=== PATIENT | female | born 1970 | race Two or more races ===

== ENCOUNTER → 2024-06-09 | Outpatient (BNVA) | payer BC, SELFPAY | END | disposition home or self-care (01) | PROVIDERS: PCP Family Medicine; Referring Provider Family Medicine; Visit Provider Urology | DX: D17.71 Benign lipomatous neoplasm of kidney (principal); E11.9 Type 2 diabetes mellitus without complications; I10 Essential (primary) hypertension; F41.9 Anxiety disorder, unspecified; N32.89 Other specified disorders of bladder; E78.00 Pure hypercholesterolemia, unspecified | CPT/HCPCS: 81003; 99212; G0463 ==

== ENCOUNTER 2024-07-02 01:17 | Emergency (ER) | payer BC, SELFPAY ==
[2024-07-02] VITALS (10 sets, daily range): BP systolic 134–174; BP diastolic 77–103; PULSE 74–105; RESP 16–97; TEMP 36.7–37.1; O2SAT 97–100; BMI 22.3
--- NOTE | 2024-07-02 | XR_ITS ---
Examination: MRI brain without intravenous contrast. Date and time of exam: July 02, 2024 0757 hours Comparison July 07, 2010 INDICATIONS: Head pressure and numbness in the left side of the head and left upper extremity beginning today, CT stroke alert July 02, 2024 0239 hours Technique: Multiple axial and sagittal images of the brain obtained. Siemens high-resolution 1.5 Marlene short bore scanners utilized. Sagittal sections, T1-weighted, TR 500, TE 14, are performed. Axial sections proton-density and T2-weighted have been obtained. Inversion recovery axial images, TR 9, 260, TE 111, TI 2500. Diffusion weighted images, axial sections, TR 4800, TE 128, B value 1000 Axial sections, ADC map, TR 4800, TE 128 Findings: Enlargement of the sella turcica is not present. The optic chiasm and infundibular are not remarkable. Prepontine and interpeduncular cisterns are not enlarged. There is no localized enlargement of the medulla or sam. Fourth ventricle and cerebellar tonsils appear normal in position. No subacute area of hemorrhage density is seen. Mass in the cerebellopontine angle region is not evident. Globes symmetrical. Orbital musculature including medial lateral rectus muscles do not exhibit abnormality. Diffusion-weighted images demonstrate no focus of restricted diffusion. Increased white matter signal numerous punctate foci increased signal in the cerebral white matter Mass effect upon the ventricular system is not identified. Impression: Numerous punctate foci increased signal in the cerebral white matter, demyelinating disease
--- NOTE | 2024-07-02 02:11 | EKG_ITS ---
[facility] Test Date: 2024-07-02 Pat Name: CONNIE VAZQUEZ Department: Room: - Gender: Female Deployment Manager: : 1970 Requested By: ED Temporary Provider Order Number: [id number] Reading MD: ED Temporary Provider Measurements Intervals [place] Rate: 90 P: 36 OH: 145 QRS: 68 QRSD: 79 T: 51 QT: 341 QTc: 418 Interpretive Statements SINUS RHYTHM No previous ECG available for comparison /store/S0/[id number]/ecg/[id number].pdf
--- NOTE | 2024-07-02 02:33 | XR_ITS ---
Examination: CT brain head without contrast. 2-D sagittal coronal reconstructions Date and time of exam: July 02, 2024 0219 hrs. Indications: Stroke alert, onset focal neurologic deficit left-sided body weakness beginning one hour ago CTDI: vol (mGy):43.40 DLP: (mGycm):880 Technique: Multiple CT axial sections of the brain have been obtained, 5 mm slice thickness. Contrast has not been administered. 2-D sagittal, coronal reconstructions have been obtained Low dose protocols were performed. One or more of the following dose reduction techniques were used; automated exposure control, adjustment of the mA and/or KV according to patient size, use of iterative reconstruction technique. Findings: No significant ventricular enlargement. Intra-axial or extra-axial hemorrhage density is not seen. No mass effect or midline shift Basal cisterns are not remarkable. Fourth ventricle is midline. Cranial vault intact. Acute maxillary sinusitis Impression: Negative for acute hemorrhage, mass effect or midline shift Brain MRI MRA without contrast, stroke protocol, would best assess for demyelinating disease, acute ischemic change
--- NOTE | 2024-07-02 02:34 | XR_ITS ---
Examination: CTA carotids with intravenous contrast CTA brain, head with intravenous contrast. 2-D sagittal, coronal reconstructions. 3-D reconstructions. Exam date and time: June 01, 2025 at 0245 hrs. Indications: Stroke alert this morning, onset focal neurologic deficit left-sided body weakness beginning one hour ago with headache beginning one week ago CTDI: vol (mGy) 16.26 DLP: (mGycm) 400 Technique: Multiple CTA axial brain, head carotid images post intravenous contrast injection 75 cc, Isovue-[id number]. 2-D sagittal, coronal reconstructions. 3-D reconstructions, 3-D post processing including vascular maximum intensity projection images. Low dose protocols were performed. One or more of the following dose reduction techniques were used; automated exposure control, adjustment of the mA and/or KV according to patient size, use of iterative reconstruction technique. Findings: No significant common carotid carotid bifurcation or internal carotid artery stenoses Dominant right vertebral artery with no critical stenoses No cerebral large vessel arterial occlusions, thrombus, dissection or cerebral aneurysm Impression: No significant neck arterial stenoses No cerebral large vessel arterial occlusions or thrombus
--- NOTE | 2024-07-02 02:53 | PC.NURSE ---
STROKE ALERT CALLED, CAME BACK FROM CT, PT CAME TO ER WITH DAUGHTER FOR C/O HEADACHE,COUGHING AND LEFT ARM WEAKNESS.
--- NOTE | 2024-07-02 02:53 | PC.NURSE ---
TELE NEUROLOGY ON AND TALKING TO DR. KWON NEUROLOGIST.
--- NOTE | 2024-07-02 03:01 | PC.NURSE ---
DR. KWON SAID NOT CANDIDATE FOR THROMBOLYTIC.
--- NOTE | 2024-07-02 03:09 | PRELIM_ITS ---
CT scan of the head without intravenous contrast (axial sections with sagittal and coronal reformats) July 02, 2024 0239 hoursClinical History: Focal neuro deficit, stroke suspectedComparison: Compar ed with the prior study dated October 10, 2019 Findings:There is no evidence of intracranial hemorrhage , mass effect or midline shift. There is mild volume loss. The calvarium is unremarkable. The mastoid air cells are clear. There is mild mucosal thickening in bilateral maxillary, ethmoid and right sphe noid sinuses. There are fluid levels in bilateral maxillary sinuses.Impression:No evidence of intracr anial hemorrhage, mass effect or midline shift. Mild volume loss.Other findings as described above. D iscussion Details: Results verbally communicated to : Dr. Prado at 03:02 AM 07/02/2024 Report El ectronically Signed By: Tonia Lan 07/02/2024 3:08:26 AM [EST]
--- NOTE | 2024-07-02 03:21 | PD.TNEURO ---
Tele Neuro Consultation Consultation Date 07/02/24 Most Recent Vital Signs Last Vital Signs Temp 98.8 F 07/02/24 03:13 Pulse 93 07/02/24 02:54 Resp 18 07/02/24 02:54 BP 167/87 H 07/02/24 02:54 Pulse Ox 99 07/02/24 02:54 O2 Del Method Room Air 07/02/24 02:54 Consultation Narrative [facility] Tele[facility]rology [facility] Patient Name:???Marie Jean Date of :???1970 Identification Number:??? Date of Service:???07/02/2024 02:31:42 Diagnosis:?R29.810 - Facial numbness/ Facial weakness Impression: ?54 y/o F with history of DM2, HLD, migraines, anxiety/depression, now presenting to hospital with a few days of sharp headaches and neck pain (also recent diagnosis of influenza), and while in the ER developed acute onset of left-sided facial weakness and numbness for which stroke alert was activated. Her examination demonstrates functional qualities, including inconsistent displays of weakness with her left arm and evidence of effort-dependence. She also appears to be squinting her left eye closed, but appears normal with distraction. NCHCT did not show acute abnormalities. Based on functional qualities to her examination, thrombolytic was not advised (low clinical suspicion for stroke). CTA head/neck without any concerning vascular abnormalities on my review. ? ?Highest clinical suspicion is for functional neurological syndrome, or potentially migraine-related symptoms. Lower clinical suspicion for stroke. ? ?Would recommend MRI brain w/o contrast to exclude stroke. If MRI does not show evidence of stroke, then no need for further inpatient neurological work-up. Should MRI brain be positive for stroke, would initiate aspirin and Plavix, and admit for further work-up. Sign Out: ? Discussed with Emergency Department Provider Advanced Imaging:CTA Head and Neck Completed. LVO:No Patient in not a candidate for RAYMUNDO Metrics: Last Known Well: 07/02/2024 01:25:00 Dispatch Time: 07/02/2024 02:30:45 Initial Response Time: 07/02/2024 02:34:42Symptoms: headaches; left-sided facial weakness/numbness. Initial patient interaction: 07/02/2024 02:35:25 NIHSS Assessment Completed: 07/02/2024 02:58:40Patient is not a candidate for Thrombolytic. Thrombolytic Medical Decision: 07/02/2024 03:06:10Patient was not deemed candidate for Thrombolytic because of following reasons: other diagnosis suspected suspect functional neurological disorder. I personally Reviewed the CT Head and it Showed no acute intracranial abnormalities Primary Provider Notified of Diagnostic Impression and Management Plan on: 07/02/2024 03:13:06 History of Present Illness:Patient is a 54 year old Female. Patient originally presented to hospital due to severe headaches and neck pains that have been occurring for the past few days. She had been diagnosed with the flu last Saturday. Due to worsening of the headaches, she came to ER for further evaluation. While in the ER, she suddenly noticed numbness and weakness over the left side of her face and left arm/left leg. Also noted to be hypertensive. ? Past Medical History: ?Diabetes Mellitus ?Hyperlipidemia ?Migraine Headaches Other PMH:? anxiety/depression; Medications: No Anticoagulant use? No Antiplatelet use Reviewed EMR for current medications Allergies:? Reviewed Social History: Smoking: No Alcohol Use: No Drug Use: No Family History: There is no family history of premature cerebrovascular disease pertinent to this consultation ROS : 14 Points Review of Systems was performed and was negative except mentioned in HPI. Past Surgical History: There Is No Surgical History Contributory To Today?s Visit ? Examination: BP(157/101),?Pulse(87),?Blood Glucose(143) 1A: Level of Consciousness - Alert; keenly responsive?+ 0 1B: Ask Month and Age - Both Questions Right?+ 0 1C: Blink Eyes & Squeeze Hands - Performs Both Tasks?+ 0 2: Test Horizontal Extraocular Movements - Normal?+ 0 3: Test Visual [place] - No Visual Loss?+ 0 4: Test Facial Palsy (Use Grimace if Obtunded) - Normal symmetry?+ 0 5A: Test Left Arm Motor Drift - Drift, but doesn't hit bed?+ 1 5B: Test Right Arm Motor Drift - Drift, but doesn't hit bed?+ 1 6A: Test Left Leg Motor Drift - Drift, but doesn't hit bed?+ 1 6B: Test Right Leg Motor Drift - Drift, but doesn't hit bed?+ 1 7: Test Limb Ataxia (FNF/Heel-Paredes) - No Ataxia?+ 0 8: Test Sensation - Mild-Moderate Loss: Less Sharp/More Dull?+ 1 9: Test Language/Aphasia - Normal; No aphasia?+ 0 10: Test Dysarthria - Normal?+ 0 11: Test Extinction/Inattention - No abnormality?+ 0 NIHSS Score:?5 NIHSS Free Text :?reports reduced sensation throughout the left side ? ?notably, patient's examination is inconsistent; initially exhibits minimal movement of her left arm. Then with prompting, she is able to slowly raise is up to 90 degrees, then suddenly drops it; also exhibits similar findings (but to a lesser extent) with her right arm and both legs Pre-Morbid Modified [place] Scale:0 Points = No symptoms at all Spoke with :?Dr. Prado This consult was conducted in real time using interactive audio and video technology. Patient was informed of the technology being used for this visit and agreed to proceed. Patient located in hospital and provider located at home/office setting. Patient is being evaluated for possible acute neurologic impairment and high probability of imminent or life-threatening deterioration. I spent total of 47 minutes providing care to this patient, including time for face to face visit via telemedicine, review of medical records, imaging studies and discussion of findings with providers, the patient and/or family. Dr Claude Ge [facility] For Inpatient follow-up with [facility] physician please call [facility] at . As we are not an outpatient service for any post hospital discharge needs please contact the hospital for assistance. If you have any questions for the [facility] physicians or need to reconsult for clinical or diagnostic changes please contact us via [facility] at . ?
--- NOTE | 2024-07-02 03:22 | PRELIM_ITS ---
CT angiogram of the head and neck with intravenous contrast (axial sections with sagittal and coronal reformats) July 02, 2024 at 0245 hours Clinical History: Focal neuro deficit, stroke suspected.Co mparison: CT Angiogram Neck October 10, 2019. Findings:Head: The internal carotid, middle and anterior cerebral arteries are patent bilaterally. The intracranial vertebral arteries are patent. The vertebr obasilar junction, basilar and posterior cerebral arteries are patent. No evidence of large vessel oc clusion, critical stenosis or aneurysm.Neck: The aortic arch to the extent visualized as well as the origins of the right brachiocephalic, left common carotid, left vertebral and subclavian arteries are patent. The common carotid arteries, carotid bulbs, and internal and external carotid arteries are p atent. The origins of the vertebral arteries are unremarkable. The right vertebral artery is dominant . No evidence of vascular occlusion, critical stenosis, dissection or aneurysm. The soft tissues of t he neck are unremarkable. The osseous structures are unremarkable.Impression: Head: No evidence of la rge vessel occlusion, critical stenosis or aneurysm.Neck: No evidence of vascular occlusion, critical stenosis, dissection or aneurysm.Discussion Details: Results verbally communicated to : Dr Sangeeta kenyon at 03:10 AM 07/02/2024 Report Electronically Signed By: Tonia Lan 07/02/2024 3:21:35 AM [EST]
[2024-07-02 03:24] LABS: Basophils % (Auto) 1 % (0-2.5); Eosinophils # (Auto) 0.1 Thou/mm3 (0.0-0.5); Eosinophils % (Auto) 1 % (0-10); Hematocrit 35.7 % (36.0-46.0); Hemoglobin 12.3 g/dL (12.0-16.0); Immature Granulocytes % (Auto) 0 % (0-0); Immature Granulocytes Auto 0.01 Thou/mm3 (0.00-0.00); Lymphocytes # (Auto) 1.9 Thou/mm3 (1.0-4.8); Lymphocytes % (Auto) 31 % (10-50); Mean Corpuscular HGB Conc 34.5 g/dl (31.0-37.0); Mean Corpuscular Hemoglobin 30.1 pg (25.0-35.0); Mean Corpuscular Volume 88 fL (80-100); Monocytes # (Auto) 0.6 Thou/mm3 (0.0-0.8); Monocytes % (Auto) 9 % (0-12); Neutrophils # (Auto) 3.7 Thou/mm3 (1.8-7.7); Neutrophils % (Auto) 58 % (37-80); Nucleated Red Blood Cell % 0 /100 WBC (0); Platelet Count 192 Thou/mm3 (140-440); RDW Standard Deviation 38.7 fL (36.4-46.3); Red Blood Count 4.08 Miln/mm3 (4.00-5.20); White Blood Count 6.2 Thou/mm3 (3.6-11.0)
--- NOTE | 2024-07-02 03:45 | EDNOTE_ITS ---
Upper Respiratory Inf. RME/HPI General Chief Complaint: Flu Like Symptoms Stated Complaint: BP 198/95 / HEADACHE /NECK Time Seen by Provider: 07/02/24 03:45 Arrival date/time: 07/02/24 01:17 Limitations: no limitations RME / HPI RME / HPI Narrative: Dr. Prado's Main ED Evaluation: 54yo female presents to the ED for complaints of tingling to the back of her neck and left arm numbness. Patient states she's been having these symptoms since she started taking her Z-pack on Saturday. Patient endorses having a headache and feeling generally weak, so she came in for evaluation. She endorses I have a sinus infection . She denies any other associated symptoms. Related Data Home Medications ?Medication ?Instructions ?Recorded ?Confirmed clonazepam 0.5 mg tablet (Klonopin) 2 mg PO BID PRN Anxiety #0 tabs 12/06/14 06/09/24 fenofibrate 160 mg tablet 160 mg PO QDAY 07/15/18 06/09/24 paroxetine HCl 30 mg tablet (Paxil) 30 mg PO QDAY 07/15/18 06/09/24 scopolamine base 1 mg over 3 days 1 mg topical Q3D PRN Vertigo 07/15/18 06/09/24 transdermal patch rosuvastatin 5 mg tablet (Crestor) 5 mg PO QDAY 08/01/18 06/09/24 vit D3-folic acid-vit B2-B6-B12 50,000 units PO QMONTH 08/01/18 06/09/24 2,000 unit-800 mcg-0.32 mg tablet omeprazole 20 mg capsule,delayed 20 mg PO BID 10/10/18 06/09/24 release semaglutide 0.25 mg or 0.5 mg (2 0.25 mg subcut QWEEK 12/01/20 06/09/24 mg/1.5 mL) subcutaneous pen injector (Ozempic) semaglutide 1 mg/dose (2 mg/1.5 1 mg subcut QWEEK 01/05/22 06/09/24 mL) subcutaneous pen injector (Ozempic) semaglutide 1 mg/dose (4 mg/3 mL) 1 mg subcut QWEEK 06/11/23 06/09/24 subcutaneous pen injector (Ozempic) Previous Rx's ?Medication ?Instructions ?Recorded sodium chloride 0.65 % nasal spray 2 spray intranasal QID #60 mL 10/10/19 aerosol (Saline Nasal) Allergies Allergy/AdvReac Type Severity Reaction Status Date / Time prochlorperazine Allergy Mild itching Verified 06/09/24 13:19 prednisone Allergy Mild Insomnia Uncoded 06/09/24 13:19 Review of Systems Review of Systems Systems Reviewed: All systems reviewed, normal except as documented Past Medical History Past Medical History NEUROLOGIC: Positive Neurological Disorders and Migraine; Negative Seizures CARDIAC: Positive Hypercholesterolemia and Hypertension; Negative Cardiac Disorders or Congestive Heart Failure RESPIRATORY: Negative Chronic Obstructive Pulmonary Disease (COPD) or Asthma GASTROINTESTINAL: Positive Gastrointestinal Disorders and Gastrointestinal Bleed GENITOURINARY: Negative Genitourinary Disorders or Renal Disease MUSCULOSKELETAL: Positive Musculoskeletal Disorders and Arthritis ENT: Positive Eye Prosthesis ENDOCRINE: Positive Endocrine Disorders and Diabetes Mellitus Type 2; Negative Diabetes Mellitus Type 1 HEMATOLOGIC: Negative Blood Disorders or Sickle Cell Disease PSYCHO/SOCIAL: Positive Anxiety; Negative Depression OTHER HISTORY: Positive Anesthesia Reactions; Negative Autoimmune Disease, Blood Transfusions or Blood Transfusion Reaction Family History FAMILY HISTORY: Positive Family Cardiac Disorders Surgical History SURGICAL: Positive Angiogram and Hysterectomy Social History SMOKING STATUS: Never smoker ED Exam Narrative Physical exam: 1A: Level of Consciousness - Alert; keenly responsive + 0 1B: Ask Month and Age - Both Questions Right + 0 1C: Blink Eyes & Squeeze Hands - Performs Both Tasks + 0 2: Test Horizontal Extraocular Movements - Normal + 0 3: Test Visual Herron - No Visual Loss + 0 4: Test Facial Palsy (Use Grimace if Obtunded) - Normal symmetry + 0 5A: Test Left Arm Motor Drift - Drift, but doesn't hit bed + 1 5B: Test Right Arm Motor Drift - Drift, but doesn't hit bed + 1 6A: Test Left Leg Motor Drift - Drift, but doesn't hit bed + 1 6B: Test Right Leg Motor Drift - Drift, but doesn't hit bed + 1 7: Test Limb Ataxia (FNF/Heel-Paredes) - No Ataxia + 0 8: Test Sensation - Mild-Moderate Loss: Less Sharp/More Dull + 1 9: Test Language/Aphasia - Normal; No aphasia + 0 10: Test Dysarthria - Normal + 0 11: Test Extinction/Inattention - No abnormality + 0 NIHSS Score: 5 General Limitations: Present no limitations General appearance: Present alert and in no apparent distress Head Head exam: Present atraumatic Eye Eye exam: Present normal appearance, PERRL and EOMI ENT ENT exam: Present normal exam, normal oropharynx and mucous membranes dry Neck Neck exam: Present normal inspection, full ROM and trachea midline Chest Chest inspection: Present normal inspection and symmetric chest wall rise Respiratory Respiratory exam: Present wheezes (minimal with cough) Cardiovascular Cardiovascular exam: Present regular rate, normal rhythm and normal heart sounds Abdominal Exam Abdominal exam: Present soft and normal bowel sounds Extremities Exam Extremities exam: Present normal inspection and full ROM; Absent pedal edema Back Exam Back exam: Present normal inspection and full ROM Neurological Exam Neurological exam: Present alert, oriented X3, CN II-XII intact and other (no facial droop, no aphasia) Psychiatric Psychiatric exam: Present normal affect and normal mood Skin Skin exam: Present warm, dry, intact and normal color Course Quality Measures none Orders Category Date Time Status Bedside Blood Glucose NOW Care 07/02/24 02:34 Active Bedside Influenza A&B Antigen Test NOW Care 07/02/24 01:26 Completed Crimping Press Operator NOW Care 07/02/24 02:34 Active Crimping Press Operator now Care 07/02/24 02:33 Active Continuous Pulse Oximetry NOW Care 07/02/24 02:33 Completed Continuous Pulse Oximetry NOW Care 07/02/24 02:34 Completed EKG (ED ONLY) *Do not use* NOW Care 07/02/24 02:11 Completed In and Out Catheter NEEDED Care 07/02/24 02:34 Active Insert IV NOW Care 07/02/24 02:33 Active Insert IV NOW Care 07/02/24 02:34 Completed MRI Screening NOW Care 07/02/24 03:12 Active MRI Screening NOW Care 07/02/24 03:12 Completed NIH Stroke Scale now Care 07/02/24 02:34 Active NPO NOW Care 07/02/24 02:34 Active Nurse Swallow Screen x1 Care 07/02/24 02:34 Active Consult to Neurology / Tele-Neurology Routine Cons 07/02/24 02:[address] angio stroke protocol Stat Exams 07/02/24 02:[address] stroke protocol Stat Exams 07/02/24 02:33 Taken EKG (ED Only) Stat Exams 07/02/24 02:11 Draft MR head/brain wo con Stat Exams 07/02/24 Ordered CBC Stat Lab 07/02/24 03:08 Completed Comprehensive Metabolic Panel Stat Lab 07/02/24 03:08 Completed Drug Screen,Urine Stat Lab 07/02/24 02:34 Ordered HCG Titer if Positive Stat Lab 07/02/24 03:08 Completed Magnesium Stat Lab 07/02/24 03:08 Completed Partial Thromboplastin Time Stat Lab 07/02/24 03:08 Received Prothrombin Time with INR Stat Lab 07/02/24 03:08 Received Troponin I Stat Lab 07/02/24 03:08 Completed Urinalysis Stat Lab 07/02/24 02:34 Ordered Urine Culture Stat Lab 07/02/24 02:34 Ordered Acetaminophen Tab [Tylenol Tab] Med 07/02/24 03:52 Discontinued 1,000 mg PO X1 ONE Albuterol/Ipratr Rt Leyda [Duoneb Rt Leyda] Med 07/02/24 03:54 Discontinued 3 ml INH X1 ONE Ketorolac Inj [Toradol Inj] Med 07/02/24 03:55 Discontinued 30 mg IVP X1 ONE Ondansetron Inj [Zofran Inj] Med 07/02/24 02:34 Active 4 mg IV Q4HR PRN Sodium Chloride 0.9% 1000 ml [Ns] 1,000 ml Med 07/02/24 03:53 Discontinued IV 999 mls/hr Oxygen Delivery NOW RT 07/02/24 02:34 Active Vital Signs Vital signs: Vital Signs Temperature 98.6 F 07/02/24 01:32 Pulse Rate 105 H 07/02/24 01:32 Respiratory Rate 18 07/02/24 01:32 Blood Pressure 174/103 H 07/02/24 01:32 Pulse Oximetry (%) 98 07/02/24 01:32 Oxygen Delivery Method Room Air 07/02/24 01:32 Upper Respiratory Infection Patient data External records reviewed:: [facility] previous records (Per chart review, patient has no relevant previous ED visits.) Clinical information provided by:: patient Social determinants that could affect healthcare access:: none Patient has the following chronic illnesses:: HTN, HLD, DM How is presenting disease/condition affected by chronic disease/condition?: exacerbated by Evaluation data The following diagnostics were reviewed and interpreted by me:: lab results, radiology exam(s) and EKG tracing(s) Lab and/or radiology exams considered but not ordered:: none Interpretation Summary: CBC is normal, EKG 0219, 90, no elev or dep, qtc 418 ------ Telerad Preliminary Report Draft Patient: CONNIE VAZQUEZ [facility]. Record#: [id number] Birthdate: 1970 Age/Sex: 54 / F Location: [facility] Attending Dr: Ordering Physician: Date of Service: Procedure(s): Accession Number(s): cc: ~ CT scan of the head without intravenous contrast (axial sections with sagittal and coronal reformats) July 02, 2024 0239 hours Clinical History: Focal neuro deficit, stroke suspected Comparison: Compared with the prior study dated October 10, 2019 Findings: There is no evidence of intracranial hemorrhage, mass effect or midline shift. There is mild volume loss. The calvarium is unremarkable. The mastoid air cells are clear. There is mild mucosal thickening in bilateral maxillary, ethmoid and right sphenoid sinuses. There are fluid levels in bilateral maxillary sinuses. Impression: No evidence of intracranial hemorrhage, mass effect or midline shift. Mild volume loss. Other findings as described above. Discussion Details: Results verbally communicated to : Dr. Prado at 03:02 AM 07/02/2024 Report Electronically Signed By: Tonia Lan 07/02/2024 3:08:26 AM [EST] ------- Telerad Preliminary Report Draft Patient: CONNIE VAZQUEZ [facility]. Record#: [id number] Birthdate: 1970 Age/Sex: 54 / F Location: [facility] Attending Dr: Ordering Physician: Date of Service: Procedure(s): Accession Number(s): cc: ~ CT angiogram of the head and neck with intravenous contrast (axial sections with sagittal and coronal reformats) July 02, 2024 at 0245 hours Clinical History: Focal neuro deficit, stroke suspected. Comparison: CT Angiogram Neck October 10, 2019. Findings: Head: The internal carotid, middle and anterior cerebral arteries are patent bilaterally. The intracranial vertebral arteries are patent. The vertebrobasilar junction, basilar and posterior cerebral arteries are patent. No evidence of large vessel occlusion, critical stenosis or aneurysm. Neck: The aortic arch to the extent visualized as well as the origins of the right brachiocephalic, left common carotid, left vertebral and subclavian arteries are patent. The common carotid arteries, carotid bulbs, and internal and external carotid arteries are patent. The origins of the vertebral arteries are unremarkable. The right vertebral artery is dominant. No evidence of vascular occlusion, critical stenosis, dissection or aneurysm. The soft tissues of the neck are unremarkable. The osseous structures are u nremarkable. Impression: Head: No evidence of large vessel occlusion, critical stenosis or aneurysm. Neck: No evidence of vascular occlusion, critical stenosis, dissection or aneurysm. Discussion Details: Results verbally communicated to : Dr Sangeeta Norton at 03:10 AM 07/02/2024 Report Electronically Signed By: Tonia Lan 07/02/2024 3:21:35 AM [EST] Medications / Prescriptions Medications or Prescriptions considered but not ordered:: none Medication administrations:: Medication Administration History Ondansetron HCl (Ondansetron Inj 2 Mg/Ml Inj 2 Ml) 4 mg IV Q4HR PRN PRN Reason: NAUSEA OR VOMITING Stop: 08/01/24 02:33 Discontinued Medications Acetaminophen (Acetaminophen 325 Mg Tablet) 1,000 mg PO X1 ONE Stop: 07/02/24 03:53 Last Admin: 07/02/24 04:07 Dose: Not Given Documented By: CVL Non-Admin Reason: Patient Refused Albuterol/Ipratropium (Albuterol/Ipratropium (Duoneb) Rt Leyda 3 Ml Nebu) 3 ml INH X1 ONE Stop: 07/02/24 03:55 Last Admin: 07/02/24 04:15 Dose: 3 ml Documented By: SC Sodium Chloride (Ns) 1,000 mls @ 999 mls/hr IV .Q1H1M ONE Stop: 07/02/24 04:53 Last Infusion: 07/02/24 05:15 Dose: Infused Documented By: Admin: 07/02/24 04:12 Dose: 999 mls/hr Documented By: CVL Ketorolac Tromethamine (Ketorolac Inj 30 Mg/Ml Vial) 30 mg IVP X1 ONE Stop: 07/02/24 03:56 Last Admin: 07/02/24 04:10 Dose: 30 mg Documented By: CVL see above Consultations Consultation(s) initiated? (list below): Yes Consultation #1 (Physician, Specialty, Details): Discussed case with [Dr. Ge] from [teleneurology] regarding [consultation]. Discussed patients ED course, exam findings, labs, and radiology results. States to get a MRI in the morning, and if it's negative, the patient does not need to be admitted. Time: 03:11 Diagnosis Upper Respiratory Differential Diagnosis: influenza and other (CVA, TIA, dehydration, electrolyte abnormality) Most likely diagnosis given after review of the tests above:: final dx pending at sign out Admission Indicated Admission indicated?: not indicated Admission Request Was there a request for admission?: No Disposition Plan Disposition Plan: other (specify) (Signed out to Dr. Kitchen at 0600 pending MRI of the brain.) Discharge Plan Plan Disposition Comment: Stable at signout Prescriptions/Referrals Prescriptions/Med Rec: No Action Ozempic 0.25 mg or 0.5 mg(2 mg/1.5 mL) pen injector 0.25 mg subcut QWEEK Rx Instructions: for 4 doses Ozempic 1 mg/dose (4 mg/3 mL) pen injector 1 mg subcut QWEEK omeprazole 20 mg capsule,delayed release(DR/EC) 20 mg PO BID Ozempic 1 mg/dose (2 mg/1.5 mL) pen injector 1 mg subcut QWEEK clonazepam [Klonopin] 0.5 MG tablet 2 mg PO BID PRN (Reason: Anxiety) Qty: 0 scopolamine base 1 mg over 3 days Patch 3 Day 1 mg Topical Q3D PRN (Reason: Vertigo) paroxetine HCl [Paxil] 30 mg Tablet 30 mg PO QDAY fenofibrate 160 mg Tablet 160 mg PO QDAY rosuvastatin [Crestor] 5 mg Tablet 5 mg PO QDAY vit D3-folic [id number] 2,000-800-0.32 unit-mcg-mg Tablet 50,000 units PO QMONTH sodium chloride [Saline Nasal] 0.65 % aerosol,spray 2 spray INTRANASAL QID Qty: 60 0RF Referrals: Temporary Provider,ED [Physician] - In 1 week Problem List Clinical Impression: Generalized weakness Patient/Caregiver Discharge Instructions Print Language: Wolof
[2024-07-02 04:04] LABS: Alanine Aminotransferase 11 U/L (10-49); Albumin, Serum 5.2 gm/dL (3.5-5.0); Albumin/Globulin Ratio 2.6 (1.2-2.2); Alkaline Phosphatase 73 U/L (46-116); Anion Gap 8 (7-16); Aspartate Amino Transferase 15 U/L (0-34); BUN/Creatinine Ratio 10 Ratio (12-20); Bilirubin,Total 0.2 mg/dL (0.3-1.2); Blood Urea Nitrogen 8 mg/dL (9-23); Calcium 9.4 mg/dL (8.3-10.6); Calcium (Corrected) 9.4 mg/dL (8.5-10.1); Carbon Dioxide 26.2 mMol/L (20.0-31.0); Chloride 102 mMol/L (98-107); Creatinine (Component) 0.8 mg/dL (0.6-1.3); Estimated Creatinine Clearance 59.3 mL/min (>60); Glucose 122 mg/dL (74-106); Magnesium 1.9 mg/dL (1.6-2.6); Osmolality,Calculated 271 (275-295); Potassium 3.6 mMol/L (3.4-5.1); Sodium 136 mMol/L (136-145); Total Protein 7.2 gm/dL (5.7-8.2); Troponin I < 0.002 ng/mL (0.0-0.045); eGFR > 60 See Note
[2024-07-02] MEDS: KETOROLAC INJ 30 MG/ML VIAL IVP (04:10)
[2024-07-02] MEDS: SODIUM CHLORIDE 0.9% 1000 ML 1,000 ML 999 ML IV (04:12)
[2024-07-02] MEDS: ALBUTEROL/IPRATROPIUM (Duoneb) RT SOL 3 ML NEBU INH (04:15)
[2024-07-02 04:17] LABS: HCG Titer if Positive Negative
--- NOTE | 2024-07-02 06:30 | EDNOTE_ITS ---
Emergency Room Addendum Addendum Narrative: 0600: Care assumed from Dr. Caban , the previous shift emergency physician. Past medical, surgical, social and family history reviewed. Vitals and home medications reviewed. I will assume the care of the patient at this time, pending MRI and reassessment. Please refer to the emergency department record for history and examination from initial visit.? Nursing notes reviewed by me. Vital signs reviewed by me. [place] medical records reviewed by me. I reviewed teleneuro recommendations. 1115: Patient remains clinically stable throughout the emergency department visit. We reviewed all the results, analysis, and treatment plans. Advised Rachna ascencio send her home with antibiotics for the sinusitis. States she has had history of H. Pylori x3 and previous upset GI with previous antibiotic capsules. Patient prescribed Amoxicillin. Patient is amenable to discharge. Strict return precautions were outlined. Patient was discharged in stable condition. RADIOLOGY _ Ordering Physician: Marie Prado MD Date of Service: 07/02/24 Procedure(s): MR head/brain wo alba Accession Number(s): [id number] cc: Héctor Clark MD; Marie Prado MD; Al Rosenberg MD~ Examination: MRI brain without intravenous contrast. Date and time of exam: July 02, 2024 0757 hours Comparison July 07, 2010 INDICATIONS: Head pressure and numbness in the left side of the head and left upper extremity beginning today, CT stroke alert July 02, 2024 0239 hours Technique: Multiple axial and sagittal images of the brain obtained. Siemens high-resolution 1.5 Marlene short bore scanners utilized. Sagittal sections, T1-weighted, TR 500, TE 14, are performed. Axial sections proton-density and T2-weighted have been obtained. Inversion recovery axial images, TR 9, 260, TE 111, TI 2500. Diffusion weighted images, axial sections, TR 4800, TE 128, B value 1000 Axial sections, ADC map, TR 4800, TE 128 Findings: Enlargement of the sella turcica is not present. The optic chiasm and infundibular are not remarkable. Prepontine and interpeduncular cisterns are not enlarged. There is no localized enlargement of the medulla or sam. Fourth ventricle and cerebellar tonsils appear normal in position. No subacute area of hemorrhage density is seen. Mass in the cerebellopontine angle region is not evident. Globes symmetrical. Orbital musculature including medial lateral rectus muscles do not exhibit abnormality. Diffusion-weighted images demonstrate no focus of restricted diffusion. Increased white matter signal numerous punctate foci increased signal in the cerebral white matter Mass effect upon the ventricular system is not identified. Impression: Numerous punctate foci increased signal in the cerebral white matter, demyelinating disease Dictated By: Héctor Clark MD Signed By: <Electronically signed by Héctor Clark MD in [place]>07/02/24 0912
[2024-07-02 07:08] LABS: Partial Thromboplastin Time 25.9 Seconds (22.0-36.0); Prothrombin Time 10.1 Seconds (9.0-12.2)
[2024-07-02 07:16] LABS: Collection Type, Urine Voided
[2024-07-02 07:53] LABS: Bilirubin,Urine Negative (Negative); Blood,Urine Negative (Negative); Clarity,Urine Clear (Clear/Hazy); Color,Urine Colorless (Lt Yel-Yel); Glucose, Urine Negative (Negative); Ketones,Urine Negative (Negative); Leukocyte Esterase,Urine Positive (Negative); Nitrite,Urine Negative (Negative); PH,Urine 6.5 (5.0-7.0); Protein,Urine Negative (Neg - Trace); RBC,Urine 1 /hpf (0-3); Specific Gravity,Urine 1.043 (1.001-1.035); Squamous Epithelial Cell,Urine < 1 /hpf (0-5); Urobilinogen,Urine Negative mg/dL (0.0-1.0); WBC,Urine 10 /hpf (0-5)
[2024-07-02 08:00] LABS: Amphetamine/Methamp Scrn,U Negative (Negative); Barbiturate Screen,Urine Negative (Negative); Benzodiazepines Screen,Urine Negative (Negative); Benzoylecgonine Screen, Ur Negative (Negative); Fentanyl Screen,Urine Negative (Negative); Opiate Screen,Urine Negative (Negative); THC Screen,Urine Negative (Negative)
--- NOTE | 2024-07-02 08:03 | PC.NURSE ---
Patient to MRI via wheelchair with Audyssey, no acute distress noted.
[2024-07-02] MEDS: ONDANSETRON INJ 2 MG/ML INJ 2 ML 4 MG IV (10:27)
== END 2024-07-02 12:05 | disposition home or self-care (01) ==
PROVIDERS: Emergency Medicine; Emergency Provider Emergency Medicine; PCP Family Medicine
DX: R53.1 Weakness (principal); R51.9 Headache, unspecified; R20.2 Paresthesia of skin; R20.0 Anesthesia of skin
CPT/HCPCS: 36415; 70450; 70496; 70498; 70551; 80053; 80307; 81001; 83735; 84484; 84703; 85025; 85610; 85730; 87086; 87400; 93005; 94640; 96361; 96374; 96375; 99285; A4649; A9270; J1885; J2405; J7030; Q9967

== ENCOUNTER → 2024-07-06 | Outpatient (CLI) | payer BC, SELFPAY ==
--- NOTE | 2024-07-06 16:51 | XR_ITS ---
Examination: PA lateral chest 2 views Technique: Upright PA lateral chest 2 views Exam date and time: July 06, 2024 1721 hrs. Comparison October 10, 2019 Indications: Coughing 2 weeks. Findings: Normal heart size. Lungs are clear. Moderate osteopenia Impression: No pneumonia identified
== END | disposition home or self-care (01) ==
PROVIDERS: PCP Family Medicine; Referring Provider Family Medicine; Visit Provider Family Medicine
DX: R05.1 Acute cough (principal)
CPT/HCPCS: 71046

== ENCOUNTER → 2024-08-03 | Outpatient (BNVA) | payer BC, SELFPAY | END | disposition home or self-care (01) | PROVIDERS: PCP Family Medicine; Referring Provider Family Medicine; Visit Provider Urology | DX: N35.92 Unspecified urethral stricture, female (principal); F41.9 Anxiety disorder, unspecified; D17.71 Benign lipomatous neoplasm of kidney; G89.4 Chronic pain syndrome; I10 Essential (primary) hypertension; E78.00 Pure hypercholesterolemia, unspecified; E11.9 Type 2 diabetes mellitus without complications | CPT/HCPCS: 52281; 81003; 96372; A4217; A4649; C1894; J1580; A9270 ==

== ENCOUNTER → 2024-09-30 | Outpatient (CLI) | payer BC, SELFPAY ==
[2024-09-30 14:30] LABS: Collection Type, Urine Clean Catch
[2024-09-30 15:38] LABS: Basophils # (Auto) 0.1 Thou/mm3 (0.0-0.2); Basophils % (Auto) 1 % (0-2.5); Eosinophils # (Auto) 0.1 Thou/mm3 (0.0-0.5); Eosinophils % (Auto) 1 % (0-10); Hematocrit 37.4 % (36.0-46.0); Hemoglobin 12.9 g/dL (12.0-16.0); Immature Granulocytes % (Auto) 0 % (0-0); Immature Granulocytes Auto 0.01 Thou/mm3 (0.00-0.00); Lymphocytes # (Auto) 1.4 Thou/mm3 (1.0-4.8); Lymphocytes % (Auto) 28 % (10-50); Mean Corpuscular HGB Conc 34.5 g/dl (31.0-37.0); Mean Corpuscular Hemoglobin 29.8 pg (25.0-35.0); Mean Corpuscular Volume 86 fL (80-100); Monocytes # (Auto) 0.2 Thou/mm3 (0.0-0.8); Monocytes % (Auto) 5 % (0-12); Neutrophils # (Auto) 3.4 Thou/mm3 (1.8-7.7); Neutrophils % (Auto) 65 % (37-80); Nucleated Red Blood Cell % 0 /100 WBC (0); Platelet Count 182 Thou/mm3 (140-440); RDW Standard Deviation 38.6 fL (36.4-46.3); Red Blood Count 4.33 Miln/mm3 (4.00-5.20); White Blood Count 5.2 Thou/mm3 (3.6-11.0)
[2024-09-30 15:42] LABS: Bilirubin,Urine Negative (Negative); Blood,Urine Negative (Negative); Clarity,Urine Clear (Clear/Hazy); Color,Urine Lt-Yellow (Lt Yel-Yel); Glucose, Urine Negative (Negative); Ketones,Urine Negative (Negative); Leukocyte Esterase,Urine Positive (Negative); Nitrite,Urine Negative (Negative); PH,Urine 5.5 (5.0-7.0); Protein,Urine Negative (Neg - Trace); Specific Gravity,Urine 1.017 (1.001-1.035); Urobilinogen,Urine Negative mg/dL (0.0-1.0)
[2024-09-30 15:43] LABS: Culture Indicated,Urine Not Indicated; Hyaline Casts,Urine < 1 /hpf (0-1); RBC,Urine 5 /hpf (0-3); Squamous Epithelial Cell,Urine < 1 /hpf (0-5); WBC,Urine 2 /hpf (0-5)
[2024-09-30 15:45] LABS: Glucose Estimated Average 114 mg/dL (80-131); Hemoglobin A1C 5.6 % Hgb (4.8-6.0)
[2024-09-30 15:46] LABS: Creatinine MALB Rnd Ur 140 mg/dL (30-125); Microalbumin Creat Ratio 4 mg/gCrea (<30); Microalbumin, Random Urine 6 mg/L (0-300)
[2024-09-30 15:49] LABS: Vitamin D 25 Hydroxy Total 24.3 ng/mL (7.3-40.2)
[2024-09-30 15:50] LABS: Alanine Aminotransferase 12 U/L (10-49); Albumin, Serum 4.4 gm/dL (3.5-5.0); Alkaline Phosphatase 77 U/L (46-116); Anion Gap 9 (7-16); Aspartate Amino Transferase 17 U/L (0-34); BUN/Creatinine Ratio 15 Ratio (12-20); Bilirubin,Total 0.8 mg/dL (0.3-1.2); Blood Urea Nitrogen 12 mg/dL (9-23); Calcium 9.4 mg/dL (8.3-10.6); Calcium (Corrected) 9.4 mg/dL (8.5-10.1); Carbon Dioxide 24.8 mMol/L (20.0-31.0); Cardiac Risk Estimate 5.8 RATIO (3.7-5.6); Chloride 107 mMol/L (98-107); Cholesterol 248 mg/dL (132-200); Creatinine (Component) 0.8 mg/dL (0.6-1.3); Globulin 2.2 gm/dL (2.3-3.5); Glucose 106 mg/dL (74-106); HDL Cholesterol 43 mg/dL (40-60); LDL Cholesterol,Calculated 153 mg/dL (0-130); Osmolality,Calculated 280 (275-295); Potassium 3.9 mMol/L (3.4-5.1); Sodium 141 mMol/L (136-145); Total Protein 6.6 gm/dL (5.7-8.2); Triglycerides 258 mg/dL (30-150); eGFR > 60 See Note
== END | disposition home or self-care (01) ==
LOC: COPL 13:47
PROVIDERS: PCP Family Medicine; Referring Provider Registered Nurse; Visit Provider Registered Nurse
DX: Z00.00 Encounter for general adult medical examination without abnormal findings (principal); E11.65 Type 2 diabetes mellitus with hyperglycemia; E78.2 Mixed hyperlipidemia
CPT/HCPCS: 36415; 80053; 80061; 81001; 82043; 82306; 82570; 83036; 84443; 85025

== ENCOUNTER → 2024-11-10 | Outpatient (CLI) | payer BC, SELFPAY ==
--- NOTE | 2024-11-10 14:30 | XR_ITS ---
Examination: Screening digital mammography, bilateral Computer aided detection 3-D breast Tomosynthesis, bilateral Date and time of exam: November 10, 2024 1406 hours Compared to mammograms dating to December 22, 2015 Indication: Screening Technique: Nonmagnified MLO, CC views of the breasts to been obtained, reconstructed from 3-D Tomosynthesis images. R2 computer aided detection program utilized for evaluation of suspicious masses and/or abnormal calcifications. 3-D Tomosynthesis images obtained. Findings: The breasts are heterogeneously dense, which may obscure small masses 8 mm focal asymmetry upper outer left breast Impression: BI-RADS Category 0: Incomplete: Need additional imaging evaluation Recommend follow-up spot tomographic views of 8 mm focal asymmetry upper outer left breast as well as left breast sonography to complete the workup.
== END | disposition home or self-care (01) ==
LOC: CDIM 14:01
PROVIDERS: Referring Provider Registered Nurse; Visit Provider Registered Nurse
DX: Z12.31 Encounter for screening mammogram for malignant neoplasm of breast (principal); R92.8 Other abnormal and inconclusive findings on diagnostic imaging of breast; N64.89 Other specified disorders of breast
CPT/HCPCS: 77063; 77067

== ENCOUNTER → 2024-12-15 | Outpatient (CLI) | payer BC, SELFPAY ==
--- NOTE | 2024-12-15 12:30 | XR_ITS ---
Examination: Breast ultrasound, unilateral, left Date and time of exam: December 15, 2024 1232 hours INDICATIONS: Mammogram 02/10/2025 8 mm focal asymmetry upper outer left breast Technique: Real-time cordova scale ultrasonographic imaging performed left breast including all 4 quadrants as well as nipple retroareolar and axillary region. Findings: No cystic or solid mass IMPRESSION: BI-RADS Category 1: Negative study
--- NOTE | 2024-12-15 13:00 | XR_ITS ---
Examination: Diagnostic digital mammography, unilateral, left Computer aided detection 3-D breast Tomosynthesis, unilateral Date and time of exam: December 15, 2024 1244 hours INDICATIONS: Mammogram 02/10/2025 8 mm focal asymmetry upper outer left breast Technique: Nonmagnified MLO, CC views of the left breast have been obtained, reconstructed from 3-D Tomosynthesis images. R2 computer aided detection program utilized for evaluation of suspicious masses and/or abnormal calcifications. 3-D Tomosynthesis images obtained. Findings: The breast is heterogeneously dense, which may obscure small masses No suspicious masses confirmed on the spot compression views Impression: BI-RADS category 2: Benign findings Return to yearly follow-up mammography
== END | disposition home or self-care (01) ==
PROVIDERS: PCP Family Medicine; Referring Provider Family Medicine; Visit Provider Family Medicine
DX: R92.332 Mammographic heterogeneous density, left breast (principal)
CPT/HCPCS: 76641; 77061; 77065; G0279

== ENCOUNTER → 2025-02-02 | Outpatient (CLI) | payer BC, SELFPAY ==
[2025-02-02 14:35] LABS: Basophils # (Auto) 0.1 Thou/mm3 (0.0-0.2); Basophils % (Auto) 1 % (0-2.5); Eosinophils # (Auto) 0.1 Thou/mm3 (0.0-0.5); Eosinophils % (Auto) 2 % (0-10); Hematocrit 39.1 % (36.0-46.0); Hemoglobin 13.0 g/dL (12.0-16.0); Immature Granulocytes Auto 0.01 Thou/mm3 (0.00-0.00); Lymphocytes # (Auto) 1.8 Thou/mm3 (1.0-4.8); Lymphocytes % (Auto) 36 % (10-50); Mean Corpuscular HGB Conc 33.2 g/dl (31.0-37.0); Mean Corpuscular Hemoglobin 29.8 pg (25.0-35.0); Mean Corpuscular Volume 90 fL (80-100); Monocytes # (Auto) 0.3 Thou/mm3 (0.0-0.8); Monocytes % (Auto) 6 % (0-12); Neutrophils # (Auto) 2.9 Thou/mm3 (1.8-7.7); Neutrophils % (Auto) 56 % (37-80); Nucleated Red Blood Cell # 0.00 Thou/mm3 (0.00-0.00); Nucleated Red Blood Cell % 0 /100 WBC (0); Platelet Count 207 Thou/mm3 (140-440); RDW Standard Deviation 40.6 fL (36.4-46.3); Red Blood Count 4.36 Miln/mm3 (4.00-5.20); White Blood Count 5.2 Thou/mm3 (3.6-11.0)
[2025-02-02 14:46] LABS: Glucose Estimated Average 143 mg/dL (80-131); Hemoglobin A1C 6.6 % Hgb (4.8-6.0)
[2025-02-02 14:49] LABS: T4 (Thyroxine) 6.2 mcg/dL (4.5-10.9)
[2025-02-02 14:51] LABS: Alanine Aminotransferase 15 U/L (10-49); Albumin, Serum 4.4 gm/dL (3.5-5.0); Albumin/Globulin Ratio 1.8 (1.2-2.2); Alkaline Phosphatase 77 U/L (46-116); Anion Gap 10 (7-16); Aspartate Amino Transferase 21 U/L (0-34); BUN/Creatinine Ratio 11 Ratio (12-20); Bilirubin,Total 0.4 mg/dL (0.3-1.2); Blood Urea Nitrogen 11 mg/dL (9-23); Calcium 9.6 mg/dL (8.3-10.6); Calcium (Corrected) 9.6 mg/dL (8.5-10.1); Carbon Dioxide 26.8 mMol/L (20.0-31.0); Chloride 106 mMol/L (98-107); Creatinine (Component) 1.0 mg/dL (0.6-1.3); Globulin 2.4 gm/dL (2.3-3.5); Glucose 137 mg/dL (74-106); Osmolality,Calculated 286 (275-295); Potassium 4.3 mMol/L (3.4-5.1); Sodium 143 mMol/L (136-145); Thyroid Stimulating Hormone 1.76 uIU/mL (0.55-4.78); Total Protein 6.8 gm/dL (5.7-8.2); eGFR > 60 See Note
== END | disposition home or self-care (01) ==
LOC: COPL 13:24
PROVIDERS: PCP Family Medicine; Referring Provider Family Medicine; Visit Provider Family Medicine
DX: E11.65 Type 2 diabetes mellitus with hyperglycemia (principal); I10 Essential (primary) hypertension; M79.18 Myalgia, other site
CPT/HCPCS: 36415; 80053; 83036; 84436; 84443; 85025

== ENCOUNTER → 2025-03-15 | Outpatient (CLI) | payer BC, SELFPAY ==
--- NOTE | 2025-03-15 16:29 | XR_ITS ---
Examination: Knee bilateral, 4 views Technique: Knee AP, lateral, lateral each knee total 4 views Date and time of exam: October 13, 2024 1631 hrs. Indications: Bilateral knee pain beginning one year ago. Findings: Moderate osteopenia Bilateral mild narrowing medial joint spaces Minimal osteoarthritis patellofemoral joints No fractures Impression: Mild bilateral osteoarthritis
== END | disposition home or self-care (01) ==
LOC: CDIM 16:20
PROVIDERS: PCP Family Medicine; Referring Provider Registered Nurse; Visit Provider Registered Nurse
DX: M17.0 Bilateral primary osteoarthritis of knee (principal)
CPT/HCPCS: 73560

== ENCOUNTER → 2025-04-05 | Outpatient (CLI) | payer BC, SELFPAY ==
--- NOTE | 2025-04-05 15:57 | XR_ITS ---
Examination: Bilateral hands, 6 views. Technique: AP, Oblique, Lateral each hand total 6 views Date and time of exam: April 05, 2025, 1607 hours INDICATIONS: Bilateral hand pain beginning 2 years ago. FINDINGS: Severe osteopenia Left hand advanced osteoarthritis distal interphalangeal joint second digit, third digit, fourth digit Moderate osteoarthritis interphalangeal joint first digit No erosive arthritis Right hand significant osteoarthritis distal interphalangeal joints second and third digits and moderate osteoarthritis distal interphalangeal joint fourth digit and interphalangeal joint first digit No erosive arthritis No fractures Impression: Osteoarthritis as above
--- NOTE | 2025-04-05 15:57 | XR_ITS ---
Shoulder bilateral, 6 views Technique: Shoulder AP internal rotation, AP external rotation, Y view each shoulder total 6 views Exam date and time :April 05 thousand 25, 1607 hours INDICATIONS: Bilateral shoulder pain beginning 2 years ago FINDINGS: Moderate osteopenia. Moderate narrowing glenohumeral joints bilaterally Prominent right shoulder calcific tendinitis No fractures IMPRESSION: Moderate narrowing glenohumeral joints bilaterally Prominent right shoulder calcific tendinitis
--- NOTE | 2025-04-05 15:57 | XR_ITS ---
Examination: Bilateral wrists 6 views Technique one AP oblique lateral each wrist total 6 views Date and time: February 03 thousand 25, 1607 hours INDICATIONS: Bilateral wrist pain beginning 2 years ago. FINDINGS: Prominent osteopenia Mild diffuse narrowing radiocarpal, intercarpal, carpometacarpal joints No erosive arthritis No fractures IMPRESSION: Mild diffuse narrowing radiocarpal, intercarpal, carpometacarpal joints
--- NOTE | 2025-04-05 15:57 | XR_ITS ---
EXAMINATION: Cervical spine, 5 views Technique: Cervical spine AP, AP odontoid, lateral, bilateral obliques, 5 views Exam date and time: April 05 thousand 25, 1607 hours, comparison December 13, 2021 INDICATIONS: Neck pain beginning 2 years ago. FINDINGS: Moderate osteopenia. Satisfactory alignment cervical vertebral bodies. No cervical fracture or significant cervical disc narrowing No neural foraminal stenosis IMPRESSION: No fracture or significant cervical disc narrowing
--- NOTE | 2025-04-05 15:57 | XR_ITS ---
Examination: Bilateral hips, AP pelvis, 5 views Technique: AP, lateral views both hips, AP pelvis, 5 views Exam date and time: April 05, 2025, 1607 hours INDICATIONS: Bilateral hip pain beginning 2 years ago FINDINGS: Moderate osteopenia. Mild to moderate narrowing hip joints No hip or pelvic fracture No avascular necrosis Bilateral greater trochanteric bursitis IMPRESSION: Mild to moderate narrowing hip joints Bilateral greater trochanteric bursitis
== END | disposition home or self-care (01) ==
PROVIDERS: PCP Family Medicine; Referring Provider Family Medicine; Visit Provider Nurse Practitioner Family
DX: M75.31 Calcific tendinitis of right shoulder (principal); M25.812 Other specified joint disorders, left shoulder; M25.811 Other specified joint disorders, right shoulder; M19.042 Primary osteoarthritis, left hand; M19.041 Primary osteoarthritis, right hand; M70.62 Trochanteric bursitis, left hip; M70.61 Trochanteric bursitis, right hip; M25.852 Other specified joint disorders, left hip; M25.851 Other specified joint disorders, right hip; M54.2 Cervicalgia; M25.832 Other specified joint disorders, left wrist; M25.831 Other specified joint disorders, right wrist
CPT/HCPCS: 72050; 73030; 73110; 73130; 73523

== ENCOUNTER → 2025-05-10 | Outpatient (CLI) | payer BC, SELFPAY ==
--- NOTE | 2025-05-10 12:40 | XR_ITS ---
Examination: Bone densitometry Date and time of exam: May 10, 2025, 1312 hours INDICATIONS: Hysterectomy age 43 calcium 3 years, diabetes Technique: Lumbar spine and hip total bone mineralization values of an calculated. Peak reference and age match control results have been displayed. Findings: Lumbar spine total bone mineralization is 0.812 gm/cm2. This is 2.1 standard deviations below peak reference. This is 0.9 standard deviations below age-matched controls. Hip total bone mineralization is 0.772 gm/cm2 This is 1.4 standard deviations below peak reference. This is 0.6 standard deviations below age-matched controls Impression: There is osteopenia based on lumbar spine measurements. There is osteopenia based on hip measurements
== END | disposition home or self-care (01) ==
PROVIDERS: PCP Family Medicine; Referring Provider Nurse Practitioner Family; Visit Provider Nurse Practitioner Family
DX: M85.89 Other specified disorders of bone density and structure, multiple sites (principal)
CPT/HCPCS: 77080

== ENCOUNTER → 2025-05-19 | Outpatient (CLI) | payer BC, SELFPAY ==
--- NOTE | 2025-05-19 16:00 | XR_ITS ---
Examination: MRI brain without intravenous contrast. 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 Siemens high-resolution 1.5 Marlene short bore scanners utilized. Sagittal sections, T1-weighted, TR 500, TE 14, are performed. Axial sections proton-density and T2-weighted have been obtained. Inversion recovery axial images, TR 9, 260, TE 111, TI 2500. Diffusion weighted images, axial sections, TR 4800, TE 128, B value 1000 Axial sections, ADC map, TR 4800, TE 128 Findings: Enlargement of the sella turcica is not present. The optic chiasm and infundibular are not remarkable. Prepontine and interpeduncular cisterns are not enlarged. There is no localized enlargement of the medulla or sam. Fourth ventricle and cerebellar tonsils appear normal in position. No subacute area of hemorrhage density is seen. Mass in the cerebellopontine angle region is not evident. Globes symmetrical. Orbital musculature including medial lateral rectus muscles do not exhibit abnormality. Diffusion-weighted images demonstrate no focus of restricted diffusion. Increased white matter signal noted, no change in multiple punctate foci increased signal in the white matter Mass effect upon the ventricular system is not identified. Impression: Again noted multiple punctate foci of increased signal in the white matter, demyelinating disease
== END | disposition home or self-care (01) ==
LOC: SMRI 15:37
PROVIDERS: PCP Family Medicine; Referring Provider Registered Nurse; Visit Provider Registered Nurse
DX: R90.82 White matter disease, unspecified (principal); G37.9 Demyelinating disease of central nervous system, unspecified
CPT/HCPCS: 70551